=== PATIENT | male | born 1960 | race African-American/Black ===

== ENCOUNTER 2017-01-23 14:38 | Emergency (ER) | payer MEDICAID, OTHER ==
[~2017-01-23] VITALS: Ht 170.2 cm; Wt 77.3 kg
[2017-01-23 17:00] VITALS: BP 132/92
== END 2017-01-23 17:35 | disposition home or self-care (01) ==
LOC: ER 15:21
DX: L02.214 Cutaneous abscess of groin (principal); F17.200 Nicotine dependence, unspecified, uncomplicated; Z88.2 Allergy status to sulfonamides
CPT/HCPCS: 99283

== ENCOUNTER 2019-04-03 13:48 | Emergency (ER) | payer SELFPAY ==
[~2019-04-03] VITALS: Ht 175.3 cm; Wt 80.0 kg
[2019-04-03] MEDS ORDERED: IBUPROFEN 600MG TABLET PO ONE (15:00)
[2019-04-03] MEDS ORDERED: HYDROCODONE/ACETAMINOPHEN 5/325MG TABLET PO ONE (15:00)
[2019-04-03] MEDS ORDERED: MORPHINE SULFATE 4 MG/ML CPJ (NOT FOR IM USE) IV ONE (16:30)
[2019-04-03] MEDS ORDERED: ONDANSETRON HCL 4MG/2ML INJ IV ONE ×2 (16:30→19:15)
[2019-04-03 17:47] LABS: HEMATOCRIT. 39.6 % (42.0-52.0); HEMOGLOBIN. 12.9 g/dL (14.0-18.0); MEAN CORPUSCULAR HEMOGLOBIN 29.8 pg (28.0-32.0); MEAN CORPUSCULAR VOLUME 91.5 fL (80.0-94.0); PLATELET 215 x1000/uL (130-400); RED BLOOD CELL COUNT 4.33 mill/uL (4.7-6.1); RED CELL DISTRIBUTION WIDTH 13.3 % (11.6-14.6)
[2019-04-03 17:55] LABS: CHLORIDE 109 mEq/L (98-107)
[2019-04-03 18:13] LABS: PLATELET ESTIMATE NORMAL
[2019-04-03] MEDS ORDERED: MORPHINE SULFATE 10 MG/ML CPJ IV ONE (19:15)
[2019-04-03 20:11] VITALS: BP 145/79
== END 2019-04-03 20:55 | disposition short-term general hospital (02) ==
LOC: ER 13:48 → CANBEDREQ 23:49
DX: S22.42XA Multiple fractures of ribs, left side, initial encounter for closed fracture (principal); M25.572 Pain in left ankle and joints of left foot; V18.0XXA Pedal cycle driver injured in noncollision transport accident in nontraffic accident, initial encounter; Y93.55 Activity, bike riding; Y92.89 Other specified places as the place of occurrence of the external cause
CPT/HCPCS: 36415; 71101; 71250; 73610; 73630; 80053; 85025; 96374; 96375; 96376; 99285; J2270; J2405

== ENCOUNTER 2022-03-23 00:25 | Emergency (ER) | payer MEDICAID, OTHER ==
[~2022-03-23] VITALS: Ht 167.6 cm; Wt 70.0 kg
[2022-03-23 00:54] VITALS: BP 110/77
[2022-03-23] MEDS ORDERED: LIDOCAINE HCL/PF 1% 10 MG/ML 5ML VIAL INFIL ONE (02:30)
[2022-03-23] MEDS ORDERED: WATER FOR IRRIGATION,STERILE 1,000 ML IRRIG.SOLN IR ONE (02:30)
[2022-03-23] MEDS ORDERED: TETANUS, DIPHTHERIA, PERTUSSIS VAC/PF 0.5ML (>10YR OLD) IM ONE (02:30)
[2022-03-23] MEDS ORDERED: MORPHINE SULFATE 4 MG/ML CPJ (NOT FOR IM USE) IV ONE ×2 (02:30→04:15)
[2022-03-23] MEDS ORDERED: AMPICILLIN SOD/SULBACTAM NA 3 G in SODIUM CHLORIDE 0.9% 100 ML IV SCH (02:30)
[2022-03-23] MEDS ORDERED: AMOX1TAB16 MT (06:04)
[2022-03-23] MEDS ORDERED: ACET-2708 MT (06:05)
[2022-03-23] MEDS ORDERED: BO1 TP (06:29)
[2022-03-23] MEDS ORDERED: BACITRACIN ZINC OINT UDPKT TOP ONE (06:30)
== END 2022-03-23 06:44 | disposition home or self-care (01) ==
LOC: ER 00:25
DX: S81.851A Open bite, right lower leg, initial encounter (principal); S01.511A Laceration without foreign body of lip, initial encounter; Y04.2XXA Assault by strike against or bumped into by another person, initial encounter; Y07.59 Other non-family member, perpetrator of maltreatment and neglect; Y93.89 Activity, other specified; Y92.096 Garden or yard of other non-institutional residence as the place of occurrence of the external cause
CPT/HCPCS: 12005; 12011; 73590; 90471; 90715; 96365; 96375; 96376; 99284; J0295; J2270; J3490; J7050; Z7610

== ENCOUNTER 2023-02-27 15:50 | Emergency (ER) | payer MEDICAID, OTHER ==
[~2023-02-27 15:50] MED LIST: ACET-2708 MT; AMOX1TAB16 MT; BO1 TP
[2023-02-27 15:56] VITALS: PULSE 88
== END 2023-02-27 17:37 | disposition left against medical advice (07) ==
LOC: ER 15:50
DX: Z53.21 Procedure and treatment not carried out due to patient leaving prior to being seen by health care provider (principal)
CPT/HCPCS: 99281

== ENCOUNTER 2023-08-10 09:00 | Emergency (ER) | payer MEDICAID ==
[~2023-08-10] VITALS: Ht 167.6 cm; Wt 64.0 kg
[2023-08-10 09:05] VITALS: BP 166/83; PULSE 77; TEMP 98.8; O2SAT 99
== END 2023-08-10 13:36 | disposition home or self-care (01) ==
LOC: ER 09:00
DX: L90.5 Scar conditions and fibrosis of skin (principal); Z88.2 Allergy status to sulfonamides
CPT/HCPCS: 70250; 99283; Z7610

== ENCOUNTER 2023-09-07 18:58 | Emergency (ER) | payer MEDICAID ==
[~2023-09-07] VITALS: Ht 170.2 cm; Wt 59.0 kg
[2023-09-07 19:08] VITALS: O2SAT 100
[2023-09-07 22:40] VITALS: BP 159/63; PULSE 69; RESP 18; TEMP 98.5
== END 2023-09-07 22:44 | disposition home or self-care (01) ==
LOC: ER 18:58
DX: S09.90XA Unspecified injury of head, initial encounter (principal); R04.0 Epistaxis; Z88.2 Allergy status to sulfonamides; Z86.59 Personal history of other mental and behavioral disorders; W22.8XXA Striking against or struck by other objects, initial encounter; Y93.89 Activity, other specified; Y92.89 Other specified places as the place of occurrence of the external cause; Y99.8 Other external cause status
CPT/HCPCS: 99284

== ENCOUNTER 2023-09-13 09:15 | Emergency (ER) | payer MEDICAID ==
[~2023-09-13] VITALS: Ht 167.6 cm; Wt 60.0 kg
[2023-09-13 09:27] VITALS: BP 144/90; O2SAT 97
[2023-09-13] MEDS: ACETAMINOPHEN 325MG TABLET PO ONE (10:32)
[2023-09-13 11:01] VITALS: PULSE 98; RESP 16; TEMP 98.6
== END 2023-09-13 11:04 | disposition home or self-care (01) ==
LOC: ER 10:13
DX: S41.011D Laceration without foreign body of right shoulder, subsequent encounter (principal); X58.XXXD Exposure to other specified factors, subsequent encounter
CPT/HCPCS: 99281; Z7610

== ENCOUNTER 2025-01-31 00:57 | Emergency (ER) | payer MEDICAID ==
[~2025-01-31] VITALS: Ht 167.6 cm; Wt 61.3 kg
[2025-01-31 01:03] VITALS: BP 147/63; PULSE 79; RESP 16; TEMP 36.7; O2SAT 99
[2025-01-31] MEDS: LIDOCAINE HCL 1% 20ML VIAL INFIL ONE (01:30)
[2025-01-31] MEDS ORDERED: BO1 TP (02:27)
[2025-01-31] MEDS ORDERED: AMOX1TAB16 MT (02:27)
[2025-01-31] MEDS ORDERED: IBUP-1455 MT (02:27)
[2025-01-31] MEDS: ACETAMINOPHEN 500MG TABLET PO ONE (02:55)
[2025-01-31] MEDS: AMOXICILLIN/POTASSIUM CLAVULANATE 875/125MG TAB PO ONE (02:55)
[2025-01-31] MEDS: BACITRACIN ZINC OINT UDPKT TOP ONE (02:56)
== END 2025-01-31 03:02 | disposition home or self-care (01) ==
LOC: ER 00:57
DX: S01.311A Laceration without foreign body of right ear, initial encounter (principal); S01.112A Laceration without foreign body of left eyelid and periocular area, initial encounter; H53.2 Diplopia; Z88.2 Allergy status to sulfonamides; F10.90 Alcohol use, unspecified, uncomplicated; Y08.89XA Assault by other specified means, initial encounter; Y93.89 Activity, other specified; Y92.89 Other specified places as the place of occurrence of the external cause; Y99.8 Other external cause status; Y90.9 Presence of alcohol in blood, level not specified
CPT/HCPCS: 12014; 70486; 99284